=== PATIENT | male | born 1960 | race Caucasian/White ===

== ENCOUNTER 2017-07-08 08:22 | Day surgery (SDC) | payer OTHER, MEDICAID ==
[2017-07-08] MEDS ORDERED: CELLCEPT250 MG PO (08:57)
[2017-07-08] MEDS ORDERED: TENORMIN25 MG PO (08:57)
[2017-07-08] MEDS ORDERED: ACETAMINOPHEN325 MG PO (08:58)
[2017-07-08] MEDS ORDERED: ROCALTROL0.25 MCG PO (08:58)
[2017-07-08] MEDS ORDERED: OMEPRAZOLE20 M1 PO (08:59)
[2017-07-08] MEDS ORDERED: OMEGA 3 FISH OI1 CAP PO (08:59)
[2017-07-08 09:23] VITALS: BMI 21.6
[2017-07-08 09:35] LABS: BASOPHILS 0.2 % (0-2); EOSINOPHILS 1.2 % (0-7); HEMATOCRIT 26.8 % (42.0-54.0); HEMOGLOBIN 8.3 g/dL (13.5-17.5); IMMATURE GRANULOCYTES 0.2 % (0-5); LYMPHOCYTES 18.9 % (15-50); MCH 28.6 pg (26.0-34.0); MCV 92.4 fL (80.0-100.0); MEAN PLATELET VOLUME 10.3 fL (7.4-10.4); MONOCYTES 7.8 % (2-11); NEUTROPHILS 71.7 % (40-80); PLATELET COUNT 299 10x3/uL (130-400)
[2017-07-08 09:42] LABS: APTT 26.3 SECONDS (22.8-39.4); INR 1.06 (0.85-1.17); PROTIME 13.7 SECONDS (11.6-15.0)
[2017-07-08 09:52] LABS: ANION GAP 21.9 mmol/L (8-16); CALCIUM 8.7 mg/dL (8.5-10.1); CARBON DIOXIDE 15.4 mmol/L (21.0-32.0); CREATININE - SERUM 8.2 mg/dL (0.6-1.3); POTASSIUM - SERUM 5.3 mmol/L (3.5-5.1)
--- NOTE | 2017-07-08 11:13 | NUR ---
1120 DISCHARGE INSTRUCTIONS COMPLETE. PT HAS NO QUESTIONS OR CONCERNS AT THIS TIME. PRESCRIPTIONS FOR OMEMPROZOLE AND CARAFATE GIVEN. PT ESCORTED OUT BY VOLUNTEER.
--- NOTE | 2017-07-09 09:09 | OP ---
PATIENT NAME: KAREN GAMBINO MEDICAL RECORD: [id number] :60 LOCATION:[facility] ADMISSION DATE: SURGEON: UTE SOLIZ DO DATE OF OPERATION: 07/08/2017 PROCEDURE: EGD with biopsies. INDICATIONS FOR PROCEDURE: Epigastric abdominal pain, anemia, positive stool guaiac. SCOPE: Olympus video gastroscope. MEDICATIONS: Propofol 300 mg IV per anesthesia. ESTIMATED BLOOD LOSS: Minimal. COMPLICATIONS: None. FINDINGS: Informed consent was given. The patient was made comfortable with the above medication. After reaching an adequate level of sedation by slow IV push, the patient was placed on his left side. The endoscope was then advanced under direct visualization through the mouth to the second portion of the duodenum. The entire esophagus appeared normal. As we approached the GE junction, there was some moderate evidence of LA class A reflux-induced esophagitis. Just distal to this, a hiatal hernia could be appreciated from the esophageal side of the cardia. The endoscope was advanced beyond the GE junction into the stomach and retroflexed to view the cardia, where the hiatal hernia was visualized. It was a moderate sized hiatal hernia, length of approximately 2 to 3 cm. The fundus of the stomach appeared normal. In the body of the stomach, there was a small amount of retained food consistent with possible gastroparesis. The antrum and prepyloric region of the stomach appeared somewhat atrophic and granular. Random biopsies were taken to submit for histology and to rule out H. pylori. The endoscope was advanced beyond the pylorus into the duodenum where there was obvious inflammation with patchy areas of erythema and granularity and a few superficial ulcerations. As the endoscope was advanced into the second portion of the duodenum, a large superficial ulceration measuring approximately 2 to 3 cm in length x 0.5 cm in width was visualized. There was no current bleeding or bleeding stigmata associated with this ulcer, but this could be a source of a positive stool guaiac and continued anemia. Biopsies were taken in the duodenum. The endoscope was then withdrawn from the patient. The patient tolerated the procedure well and there were no complications. IMPRESSION: 1. Moderate Menard class A reflux-induced esophagitis. 2. Medium sized sliding hiatal hernia. 3. Small amount of retained food in the stomach. 4. Atrophic and granular gastric mucosa consistent with possible gastritis, biopsies pending. 5. Granularity and erythema consistent with duodenitis. 6. Large duodenal ulcer as described above in the second portion of the duodenum, which is likely contributing to the anemia and positive stool guaiac. PLAN AND RECOMMENDATIONS: OPERATIVE REPORT [id number] MAKIKAREN 1. Discharge home when recovery parameters are met. 2. Follow up biopsy specimen results. 3. Increased omeprazole 40 mg daily in the a.m. for 8 weeks' duration. 4. Add Carafate tablets 1 g q.a.c. and h.s. times 10 days. 5. Follow hemoglobin levels and continue Procrit injections until hemoglobin recovers. 6. If biopsies indicate presence of H. pylori, this will be treated. 7. Consider colonoscopy if no improvement in anemia. 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
== END 2017-07-08 11:22 | disposition home or self-care (01) ==
LOC: D.OPS 08:22
PROVIDERS: Internal Medicine Gastroenterology
DX: D64.9 Anemia, unspecified (principal); R10.13 Epigastric pain; K21.0 Gastro-esophageal reflux disease with esophagitis; K44.9 Diaphragmatic hernia without obstruction or gangrene; K26.9 Duodenal ulcer, unspecified as acute or chronic, without hemorrhage or perforation; R19.5 Other fecal abnormalities; I12.9 Hypertensive chronic kidney disease with stage 1 through stage 4 chronic kidney disease, or unspecified chronic kidney disease; N18.9 Chronic kidney disease, unspecified; Z01.812 Encounter for preprocedural laboratory examination

== ENCOUNTER 2017-10-21 14:07 | Inpatient (IN) | payer OTHER, MEDICAID ==
[~2017-10-21] VITALS: Ht 175.3 cm; Wt 71.4 kg
[~2017-10-21 14:07] MED LIST: ACETAMINOPHEN325 MG PO; CELLCEPT250 MG PO; OMEGA 3 FISH OI1 CAP PO; OMEPRAZOLE20 M1 PO; ROCALTROL0.25 MCG PO; TENORMIN25 MG PO
[2017-10-21 16:53] LABS: BASOPHILS 0.2 % (0-2); EOSINOPHILS 0.4 % (0-7); HEMOGLOBIN 8.5 g/dL (13.5-17.5); IMMATURE GRANULOCYTES 0.3 % (0-5); LYMPHOCYTES 9.7 % (15-50); MCH 28.1 pg (26.0-34.0); MCHC 29.3 g/dL (31.0-37.0); MEAN PLATELET VOLUME 10.6 fL (7.4-10.4); MONOCYTES 8.4 % (2-11); RBC 3.02 10x6/uL (4.20-6.10); RDW 20.6 % (11.5-14.5); WBC 11.6 10x3/uL (4.8-10.8)
[2017-10-21 16:55] LABS: PLATELET COUNT 460 10x3/uL (130-400)
[2017-10-21 17:03] LABS: ALBUMIN 3.4 g/dL (3.4-5.0); ANION GAP 19.2 mmol/L (8-16); BILIRUBIN - TOTAL 0.4 mg/dL (0.2-1.3); CARBON DIOXIDE 24.6 mmol/L (21.0-32.0); CREATININE - SERUM 9.8 mg/dL (0.6-1.3); POTASSIUM - SERUM 3.8 mmol/L (3.5-5.1); PROTEIN - SERUM 6.8 g/dL (6.4-8.2)
[2017-10-21] MEDS ORDERED: NORVASC10 MG PO (23:47)
[2017-10-21] MEDS ORDERED: CARAFATE1 G PO (23:48)
[2017-10-22 00:24] LABS: APPEARANCE CLEAR (CLEAR); COLOR STRAW (YELLOW)
[2017-10-22 00:25] LABS: BACTERIA NONE SEEN /hpf (NONE SEEN); BILIRUBIN NEGATIVE (NEGATIVE); EPITHELIAL CELLS 0-5 /hpf (0-5); GLUCOSE 50 mg/dL (NEGATIVE); KETONE NEGATIVE (NEGATIVE); NITRITE NEGATIVE (NEGATIVE); PROTEIN 3+ mg/dL (NEGATIVE); RED CELLS - URINE 0-5 /hpf (0-5); UROBILINOGEN NORMAL (NORMAL); WHITE CELLS - URINE 0-5 /hpf (0-5)
[2017-10-22 06:27] VITALS: BP 106/64
[2017-10-22 06:58] LABS: ANION GAP 16.4 mmol/L (8-16); CALCIUM 8.3 mg/dL (8.5-10.1); CARBON DIOXIDE 26.8 mmol/L (21.0-32.0); CREATININE - SERUM 10.2 mg/dL (0.6-1.3); POTASSIUM - SERUM 4.2 mmol/L (3.5-5.1)
[2017-10-22 07:21] VITALS: BMI 23.2
[2017-10-22 08:33] VITALS: BP 159/70
[2017-10-22 11:58] VITALS: BP 157/75
[2017-10-22 12:05] VITALS: BP 154/70
[2017-10-22 16:26] VITALS: BP 148/64
[2017-10-22 20:00] VITALS: BP 153/64
[2017-10-23] VITALS: BP 146/63; BP 154/66
[2017-10-23 04:00] VITALS: BP 150/68
[2017-10-23 05:46] LABS: BASOPHILS 0.1 % (0-2); EOSINOPHILS 1.4 % (0-7); HEMATOCRIT 25.4 % (42.0-54.0); IMMATURE GRANULOCYTES 0.3 % (0-5); LYMPHOCYTES 24.3 % (15-50); MCHC 28.7 g/dL (31.0-37.0); MCV 97.3 fL (80.0-100.0); MEAN PLATELET VOLUME 10.4 fL (7.4-10.4); MONOCYTES 9.8 % (2-11); NEUTROPHILS 64.1 % (40-80); RBC 2.61 10x6/uL (4.20-6.10); RDW 20.5 % (11.5-14.5)
[2017-10-23 06:01] LABS: WBC 7.7 10x3/uL (4.8-10.8)
[2017-10-23 06:02] LABS: HEMOGLOBIN 7.3 g/dL (13.5-17.5); PLATELET COUNT 344 10x3/uL (130-400)
[2017-10-23 06:12] LABS: % SATURATION 17 % (15-55); IRON 39 ug/dl (35-150); TOTAL IRON BIND CAPACITY 219 ug/dl (260-445); UNSAT IRON BIND CAPACITY 180 ug/dl (150-375)
[2017-10-23 06:23] LABS: ANION GAP 17.4 mmol/L (8-16); CALCIUM 8.3 mg/dL (8.5-10.1); CARBON DIOXIDE 24.7 mmol/L (21.0-32.0); CREATININE - SERUM 10.7 mg/dL (0.6-1.3); PHOSPHOROUS 6.6 mg/dL (2.5-4.9); POTASSIUM - SERUM 4.1 mmol/L (3.5-5.1)
[2017-10-23 07:41] VITALS: BP 136/58
[2017-10-23 11:37] VITALS: BP 132/61
[2017-10-23 12:18] VITALS: Ht 175.3 cm; Wt 71.4 kg
[2017-10-23 16:09] VITALS: BP 137/59
[2017-10-23 20:40] VITALS: BP 148/77
[2017-10-24 05:41] LABS: BASOPHILS 0.3 % (0-2); EOSINOPHILS 1.3 % (0-7); HEMATOCRIT 25.1 % (42.0-54.0); IMMATURE GRANULOCYTES 0.1 % (0-5); LYMPHOCYTES 19.6 % (15-50); MCH 27.7 pg (26.0-34.0); MCHC 28.7 g/dL (31.0-37.0); MCV 96.5 fL (80.0-100.0); MEAN PLATELET VOLUME 9.8 fL (7.4-10.4); MONOCYTES 10.8 % (2-11); NEUTROPHILS 67.9 % (40-80); PLATELET COUNT 332 10x3/uL (130-400); RDW 20.4 % (11.5-14.5); WBC 7.2 10x3/uL (4.8-10.8)
[2017-10-24 05:55] LABS: ANION GAP 16.3 mmol/L (8-16); CALCIUM 8.4 mg/dL (8.5-10.1); CARBON DIOXIDE 25.7 mmol/L (21.0-32.0); CREATININE - SERUM 10.7 mg/dL (0.6-1.3)
[2017-10-24 06:17] VITALS: BP 139/58
[2017-10-24 06:30] LABS: HEMOGLOBIN 7.2 g/dL (13.5-17.5)
[2017-10-24 07:50] VITALS: BP 162/71
[2017-10-24] MEDS ORDERED: LASIX INJ40 MG/4 ML PO (11:21)
[2017-10-24] MEDS ORDERED: PROAIR HFA8.5 GM INH (11:22)
[2017-10-24 19:24] LABS: HEMATOCRIT 28.1 % (42.0-54.0); HEMOGLOBIN 8.2 g/dL (13.5-17.5)
== END 2017-10-24 20:16 | disposition home or self-care (01) | DRG 683 ==
LOC: OBSVTIME → D.ER 14:07 → OBSVTIME 19:39 → D.ER 19:39 → D.SDCHOLD 19:39 → D.M2 20:43 → OBSVTIME 20:43 → D.WS 20:51 → D.SDCHOLD 20:51 → D.M2 10-22 14:18
PROVIDERS: Internal Medicine; Physician Assistant Medical
DX: I12.0 Hypertensive chronic kidney disease with stage 5 chronic kidney disease or end stage renal disease (principal); N18.5 Chronic kidney disease, stage 5; J81.1 Chronic pulmonary edema; Z86.73 Personal history of transient ischemic attack (TIA), and cerebral infarction without residual deficits; D63.1 Anemia in chronic kidney disease

== ENCOUNTER 2017-12-09 18:53 | Inpatient (IN) | payer OTHER, MEDICAID ==
[2017-12-09] VITALS: BP 174/81
[~2017-12-09] VITALS: Ht 175.3 cm; Wt 63.7 kg
[~2017-12-09 18:53] MED LIST changes: +CARAFATE1 G PO; +LASIX INJ40 MG/4 ML PO; +NORVASC10 MG PO; +PROAIR HFA8.5 GM INH
[2017-12-09 20:24] LABS: ALBUMIN 3.2 g/dL (3.4-5.0); ANION GAP 19.9 mmol/L (8-16); BILIRUBIN - TOTAL 0.39 mg/dL (0.2-1.3); CALCIUM 11.2 mg/dL (8.5-10.1); CREATININE - SERUM 13.7 mg/dL (0.6-1.3); POTASSIUM - SERUM 4.9 mmol/L (3.5-5.1); PROTEIN - SERUM 6.9 g/dL (6.4-8.2)
[2017-12-09 21:20] LABS: BASOPHILS 0.1 % (0-2); EOSINOPHILS 1.6 % (0-7); HEMATOCRIT 33.5 % (42.0-54.0); HEMOGLOBIN 10.4 g/dL (13.5-17.5); IMMATURE GRANULOCYTES 0.1 % (0-5); LYMPHOCYTES 15.4 % (15-50); MCH 27.2 pg (26.0-34.0); MCV 87.5 fL (80.0-100.0); MEAN PLATELET VOLUME 10.2 fL (7.4-10.4); NEUTROPHILS 71.8 % (40-80); PLATELET COUNT 299 10x3/uL (130-400); RBC 3.83 10x6/uL (4.20-6.10); RDW 17.9 % (11.5-14.5)
[2017-12-09 22:38] LABS: APPEARANCE CLEAR (CLEAR); BILIRUBIN NEGATIVE (NEGATIVE); COLOR YELLOW (YELLOW); GLUCOSE NEGATIVE (NEGATIVE); KETONE NEGATIVE (NEGATIVE); NITRITE NEGATIVE (NEGATIVE); PROTEIN 1+ mg/dL (NEGATIVE); UROBILINOGEN NORMAL (NORMAL)
[2017-12-09] MEDS ORDERED: LASIX40 MG PO (23:38)
[2017-12-10 05:27] VITALS: BP 175/67
[2017-12-10 05:29] LABS: BASOPHILS 0.1 % (0-2); EOSINOPHILS 1.1 % (0-7); HEMATOCRIT 30.7 % (42.0-54.0); HEMOGLOBIN 9.3 g/dL (13.5-17.5); IMMATURE GRANULOCYTES 0.1 % (0-5); LYMPHOCYTES 15.4 % (15-50); MCH 26.6 pg (26.0-34.0); MCHC 30.3 g/dL (31.0-37.0); MEAN PLATELET VOLUME 10.6 fL (7.4-10.4); MONOCYTES 9.8 % (2-11); NEUTROPHILS 73.5 % (40-80); PLATELET COUNT 259 10x3/uL (130-400); RBC 3.49 10x6/uL (4.20-6.10); RDW 17.9 % (11.5-14.5); WBC 7.2 10x3/uL (4.8-10.8)
[2017-12-10 05:39] LABS: ALBUMIN 2.7 g/dL (3.4-5.0); ANION GAP 18.2 mmol/L (8-16); BILIRUBIN - TOTAL 0.35 mg/dL (0.2-1.3); CALCIUM 10.5 mg/dL (8.5-10.1); CARBON DIOXIDE 25.4 mmol/L (21.0-32.0); CREATININE - SERUM 13.6 mg/dL (0.6-1.3); MAGNESIUM - SERUM 2.8 mg/dL (1.8-2.4); PHOSPHOROUS 7.8 mg/dL (2.5-4.9); POTASSIUM - SERUM 5.6 mmol/L (3.5-5.1)
[2017-12-10 08:06] VITALS: BP 156/60
[2017-12-10 10:14] VITALS: Ht 175.3 cm; Wt 63.7 kg
[2017-12-10 10:22] VITALS: BP 156/60
[2017-12-10 15:24] VITALS: BP 144/63
[2017-12-10 22:10] VITALS: BP 168/73
[2017-12-11 06:24] LABS: BASOPHILS 0 % (0-2); EOSINOPHILS 0.9 % (0-7); HEMOGLOBIN 9.4 g/dL (13.5-17.5); IMMATURE GRANULOCYTES 0.2 % (0-5); LYMPHOCYTES 16.2 % (15-50); MCH 27.1 pg (26.0-34.0); MCHC 30.3 g/dL (31.0-37.0); MCV 89.3 fL (80.0-100.0); MEAN PLATELET VOLUME 9.7 fL (7.4-10.4); MONOCYTES 12.9 % (2-11); NEUTROPHILS 69.8 % (40-80); PLATELET COUNT 226 10x3/uL (130-400); RBC 3.47 10x6/uL (4.20-6.10); RDW 17.8 % (11.5-14.5); WBC 5.8 10x3/uL (4.8-10.8)
[2017-12-11 06:34] VITALS: BP 151/60
[2017-12-11 06:37] LABS: ALBUMIN 2.5 g/dL (3.4-5.0); ANION GAP 16.5 mmol/L (8-16); BILIRUBIN - TOTAL 0.37 mg/dL (0.2-1.3); CALCIUM 9.2 mg/dL (8.5-10.1); CARBON DIOXIDE 26.3 mmol/L (21.0-32.0); MAGNESIUM - SERUM 2.2 mg/dL (1.8-2.4); POTASSIUM - SERUM 4.8 mmol/L (3.5-5.1); PROTEIN - SERUM 5.7 g/dL (6.4-8.2)
[2017-12-11 06:45] LABS: CREATININE - SERUM 9.2 mg/dL (0.6-1.3); PHOSPHOROUS 5.4 mg/dL (2.5-4.9)
[2017-12-11 20:00] VITALS: BP 159/72
[2017-12-12 04:44] LABS: BASOPHILS 0.1 % (0-2); EOSINOPHILS 1.1 % (0-7); HEMATOCRIT 33.2 % (42.0-54.0); HEMOGLOBIN 9.9 g/dL (13.5-17.5); IMMATURE GRANULOCYTES 0.1 % (0-5); MCH 26.8 pg (26.0-34.0); MCHC 29.8 g/dL (31.0-37.0); MCV 89.7 fL (80.0-100.0); MEAN PLATELET VOLUME 10.2 fL (7.4-10.4); MONOCYTES 12.3 % (2-11); NEUTROPHILS 70.4 % (40-80); PLATELET COUNT 238 10x3/uL (130-400); RDW 17.6 % (11.5-14.5)
[2017-12-12 04:46] LABS: WBC 7.5 10x3/uL (4.8-10.8)
[2017-12-12 05:12] LABS: ALBUMIN 2.7 g/dL (3.4-5.0); ANION GAP 14.1 mmol/L (8-16); BILIRUBIN - TOTAL 0.3 mg/dL (0.2-1.3); CALCIUM 8.8 mg/dL (8.5-10.1); CARBON DIOXIDE 27.4 mmol/L (21.0-32.0); MAGNESIUM - SERUM 2.1 mg/dL (1.8-2.4); PHOSPHOROUS 4.5 mg/dL (2.5-4.9); POTASSIUM - SERUM 4.5 mmol/L (3.5-5.1); PROTEIN - SERUM 5.9 g/dL (6.4-8.2)
[2017-12-12 06:42] VITALS: BP 144/61
[2017-12-12 08:18] LABS: HEPATITIS C ANTIBODY 0.1 (0.0-0.9)
[2017-12-12 10:25] VITALS: BP 153/67
[2017-12-12 13:01] VITALS: BP 131/61
== END 2017-12-12 18:02 | disposition home or self-care (01) | DRG 682 ==
LOC: D.ER 18:53 → D.EDHOLD 22:24 → D.M2 22:24
PROVIDERS: Family Medicine; Internal Medicine Nephrology
PROC: 5A1D70Z Performance of Urinary Filtration, Intermittent, Less than 6 Hours Per Day (ICD-10-PCS; principal; 2017-12-10)
DX: I12.0 Hypertensive chronic kidney disease with stage 5 chronic kidney disease or end stage renal disease (principal); N18.6 End stage renal disease; J81.0 Acute pulmonary edema; Z94.4 Liver transplant status; Z99.2 Dependence on renal dialysis; D63.1 Anemia in chronic kidney disease